=== PATIENT | female | born 1980 | race Caucasian/White ===

== ENCOUNTER 2019-01-14 12:28 | Observation (INO) ==
[2019-01-14] MEDS ORDERED: 0.9 % Sodium Chloride 1,000 ML IVC ONE (12:52)
--- NOTE | 2019-01-14 12:52 | Emergency Department Note ---
Disposition Clinical Impression: Dysuria, Pelvic abscess, SIRS (systemic inflammatory response syndrome) Disposition: Admitted As Inpatient Referrals: Marybeth Kelley CNP [Primary Care Provider] - Forms: ED Satisfaction Letter, Work/School Release Time of Disposition: 16:17 General Adult HPI - General Chief complaint: ED Abdominal Pain Stated complaint: Chilled post surgical pain Time Seen by Provider: 01/14/19 12:49 Source: patient, family Mode of arrival: private vehicle Limitations: no limitations Nursing Notes Reviewed: Yes Vital Signs Reviewed: Yes - History of Present Illness HPI Narrative: Patient is a 38-year-old female with a past medical history including hypertension, type 2 diabetes mellitus [id number], presenting with chief complaint of dysuria and chills. 4 days ago, the patient had a robotic myomectomy done. She had A Ward catheter placed that was removed on postoperative day #1. She was urinating well. She complains of increased difficulty urinating and pain with urination for the end of the stream with some burning with urination that has been progressively worsening the last 2-3 days. She states since last night, she complains of chills but no documented fevers. She has been eating and drinking normally. No nausea or vomiting. She had a normal bowel movement yesterday after self disimpaction. She denies hematuria but states her urine is darker. Denies abnormal vaginal discharge or bleeding. She has occasional lower abdominal pain that worsens when she stands up. She has been wearing her abdominal binder. Incision sites appears to be well. Pain Scale: 5 - Related Data Home Medications Medication Instructions Recorded Confirmed Albuterol Sulfate [Proventil Hfa] 2 puff PO Q4H PRN 10/16/18 01/10/19 Cetirizine HCl [Zyrtec] 10 mg PO QPM 10/16/18 01/10/19 Dextroamphetamine/Amphetamine 20 mg PO BID 10/16/18 01/10/19 [Adderall 20 mg Tablet] Fluticasone Propionate Nasal 2 spray NS BID PRN 10/16/18 01/10/19 [Flonase] Lisinopril [Zestril] 10 mg PO QAM 10/16/18 01/10/19 Metformin HCl 1,000 mg PO BID 10/16/18 01/14/19 Pnv No.122/Iron/Folic Acid 1 tab PO QPM 10/16/18 01/10/19 [ Multi Tablet] clonazePAM [Klonopin] 0.5 mg PO BID PRN 10/16/18 01/10/19 Lysine [l-Lysine] 1,000 mg PO TID PRN 01/10/19 01/10/19 Previous Rx's Medication Instructions Recorded HYDROcodone/Acet 5/325 mg [[place] 1 tab PO Q4HR PRN 7 Days #30 tablet 01/11/19 5-325 mg] Ibuprofen [Motrin] 600 mg PO Q6HR PRN #40 tablet 01/11/19 Allergies Allergy/AdvReac Type Severity Reaction Status Date / Time No Known Allergies Allergy Verified 01/10/19 09:56 All systems ED: reviewed and negative except as stated. Review of Systems: As Per HPI Constitutional: Reports: chills. Denies: fever Cardiovascular: Denies: chest pain, palpitations Respiratory: Denies: cough, dyspnea Gastrointestinal: Reports: abdominal pain. Denies: nausea, vomiting, diarrhea Genitourinary: Reports: dysuria. Denies: hematuria Neurological: Denies: headache, weakness Past Medical History - Past Medical History Attestation: Yes The following information was validated with the patient. Source: patient Medical history: Reports: asthma, diabetes, hypertension, other Surgical history: Reports: other Psychiatric history: Reports: anxiety - Social History Smoking Status: Current some day smoker Smokeless Tobacco Status: No Alcohol use: Reports: occasionally Drug use: Reports: none Physical Exam - General Limitations: no limitations General appearance: alert, in no apparent distress - Head Head exam: atraumatic, normocephalic - Eye Eye exam: Present: normal appearance, EOMI - ENT ENT exam: normal exam, normal oropharynx - Neck Neck exam: Present: normal inspection, trachea midline - Chest Chest inspection: Present: normal inspection, symmetric chest wall rise - Respiratory Respiratory exam: Present: normal lung sounds bilaterally. Absent: respiratory distress, wheezes - Cardiovascular Cardiovascular exam: Present: normal rhythm, tachycardia - Abdominal Exam Abdominal exam: Present: soft, other (Suprapubic abdominal tenderness to palpation without guarding, rebound or distention. Surgery incision sites appear to be healing well, no surrounding erythema or discharge) - Extremities Exam Extremities exam: Present: normal capillary refill. Absent: pedal edema, calf tenderness - Neurological Exam Neurological exam: Present: alert, oriented X3 - Psychiatric Psychiatric exam: Present: normal affect, normal mood - Skin Skin exam: Present: warm, dry. Absent: diaphoresis, pallor Course Vital Signs Temperature 98.0 F 01/14/19 12:29 Pulse Rate 108 01/14/19 12:29 Respiratory Rate 20 01/14/19 12:29 Blood Pressure 157/109 01/14/19 12:29 O2 Sat by Pulse Oximetry 100 01/14/19 12:29 Temperature 98.0 F 01/14/19 12:29 Pulse Rate 104 01/14/19 13:03 Respiratory Rate 16 01/14/19 13:03 Blood Pressure 150/91 01/14/19 13:03 O2 Sat by Pulse Oximetry 96 01/14/19 13:03 Oxygen Delivery Oxygen Delivery Room Air Medical Decision Making - MDM Narrative Medical decision making narrative: Patient is presenting with signs and symptoms of UTI. She did have a Ward catheter during her admission this past week. Will obtain urinalysis. She is mildly tachycardic and was initially tachypneic. We will give her a liter of IV fluid bolus, obtain CBC, BMP, lactate and blood cultures. Do not suspect that the patient has a postoperative complication however as she has a non-peritoneal abdominal examination. She does have mild abdominal tenderness to palpation in the suprapubic region. Will give her Tylenol, she is in no acute distress and no pain while laying down. 13:50 Urinalysis shows no UTI, will obtain CT abd pelvis to evaluate for postoperative complications at this time. 15:35 Discussed with [facility], Dr. Rosen. CT results shows soft tissue gas throughout and concern for possible necrotizing fasciitis versus from the insufflation however it is a large amount. No crepitus was noted on abdominal examination. She has a nonperitoneal abdominal exam and the patient There is also a abscess in the pelvis measuring 10cm. OBGYN paged. 15:45 Discussed with OBGYN, Dr. Miguel who will look at imaging and call back. Vancomycin and zosyn ordered 16:00 Possible IR drainage today or tomorrow, IV abx. If he is unable to do it, IV abx with one dose, send home with one dose. She also states the subcutaneous area was insuflated with air and patient does not have necrotizing fasscitis. 16:[address] Miguel. The abscess is loculated and not able to IR drain at this time, will try with IV antibiotics and admit for observation as she initially met SIRS with tachycardia and tachypnea. She is still tachycardic despite IVFs. - Medical Records Medical records reviewed: Yes I reviewed the patient's medical records. - Lab Data Lab results reviewed: Yes I reviewed the patient's lab results. Result diagrams: 01/14/19 13:34 01/14/19 13:34 Lab Results 01/14/19 01/14/19 01/14/19 Range/Units 13:11 13:34 13:34 WBC 9.7 (4.3-11.1) K/mcL RBC 3.64 L (3.82-4.97) M/mcL Hgb 10.7 L (11.5-15.4) g/dL Hct 32.6 L (35.3-44.9) % MCV 89.6 (83.0-100.0) fL MCH 29.4 (28.0-33.3) pg MCHC 32.8 (31.6-35.5) g/dL RDW 13.1 (11.5-14.5) % Plt Count 236 (140-400) K/mcL MPV 11.5 (9.4-12.4) fL Immature Gran % 0.3 (0-4) % Seg Neutrophils % 85.3 % Lymphocytes % 7.5 % Monocytes % 5.3 % Eosinophils % 1.5 % Basophils % 0.1 % Neutrophils # 8.3 (1.6-8.9) K/mcL Lymphocytes # 0.7 (0.6-4.6) K/mcL Monocytes # 0.5 (0.0-1.3) K/mcL Eosinophils # 0.2 (0.0-0.6) K/mcL Basophils # 0.0 (0.0-0.2) K/mcL Sodium 136 (136-145) mEq/L Potassium 3.6 (3.5-5.1) mEq/L Chloride 101 (98-107) mEq/L Carbon Dioxide 25 (23-29) mEq/L BUN 5 L (6-20) mg/dL Creatinine 0.53 L (0.60-1.20) mg/dL Est GFR ( Amer) > 60 (> 60) Est GFR (Non-Af Amer) > 60 (> 60) BUN/Creatinine Ratio 9 (6-26) Glucose 105 (70-105) mg/dL Calculated Osmolality 280 (280-300) Lactic Acid (0.5-2.2) mmol/L Calcium 8.9 (8.6-10.3) mg/dL Urine Color Yellow (Yellow) Urine Clarity Clear (Clear) Urine pH 7.5 (5.0-8.0) pH Units Ur Specific [place] 1.014 (1.010-1.025) Urine Protein Negative (Neg-Trace) mg/dL Urine Glucose (UA) Normal (Normal) mg/dL Urine Ketones Negative (Negative) mg/dL Urine Blood Negative (Negative) Urine Nitrite Negative (Negative) Urine Bilirubin Negative (Negative) Urine Urobilinogen Normal (Normal) mg/dL Ur Leukocyte Esterase Trace H (Negative) Urine Microscopic RBC 0-3 (0-3) per hpf Urine Microscopic WBC 3-5 H (0-3) per hpf Ur Squamous Epith Cells Many H (None-Few) per lpf Urine Bacteria None Seen (None-Few) per hpf Hyaline Casts None Seen (None-Few) per lpf Ur Culture Indicated? YES A (NO) 01/14/19 Range/Units 13:34 WBC (4.3-11.1) K/mcL RBC (3.82-4.97) M/mcL Hgb (11.5-15.4) g/dL Hct (35.3-44.9) % MCV (83.0-100.0) fL MCH (28.0-33.3) pg MCHC (31.6-35.5) g/dL RDW (11.5-14.5) % Plt Count (140-400) K/mcL MPV (9.4-12.4) fL Immature Gran % (0-4) % Seg Neutrophils % % Lymphocytes % % Monocytes % % Eosinophils % % Basophils % % Neutrophils # (1.6-8.9) K/mcL Lymphocytes # (0.6-4.6) K/mcL Monocytes # (0.0-1.3) K/mcL Eosinophils # (0.0-0.6) K/mcL Basophils # (0.0-0.2) K/mcL Sodium (136-145) mEq/L Potassium (3.5-5.1) mEq/L Chloride (98-107) mEq/L Carbon Dioxide (23-29) mEq/L BUN (6-20) mg/dL Creatinine (0.60-1.20) mg/dL Est GFR ( Amer) (> 60) Est GFR (Non-Af Amer) (> 60) BUN/Creatinine Ratio (6-26) Glucose (70-105) mg/dL Calculated Osmolality (280-300) Lactic Acid 1.2 (0.5-2.2) mmol/L Calcium (8.6-10.3) mg/dL Urine Color (Yellow) Urine Clarity (Clear) Urine pH (5.0-8.0) pH Units Ur Specific [place] (1.010-1.025) Urine Protein (Neg-Trace) mg/dL Urine Glucose (UA) (Normal) mg/dL Urine Ketones (Negative) mg/dL Urine Blood (Negative) Urine Nitrite (Negative) Urine Bilirubin (Negative) Urine Urobilinogen (Normal) mg/dL Ur Leukocyte Esterase (Negative) Urine Microscopic RBC (0-3) per hpf Urine Microscopic WBC (0-3) per hpf Ur Squamous Epith Cells (None-Few) per lpf Urine Bacteria (None-Few) per hpf Hyaline Casts (None-Few) per lpf Ur Culture Indicated? (NO) - Radiology Data Radiology results reviewed: Yes I reviewed the patient's radiology results. Abdomen/Pelvis CT 01/14/19 13:53 IMPRESSION: 1. Large volume soft tissue gas involving the right perineum, groin, anterior abdominal wall and extending to the anterior aspect of the lower right chest. While this may be related insufflation during the surgery, necrotizing infection should be excluded. 2. Multilocular pelvic abscess measuring approximately 11 x 7 x 3 cm. 3. Cholelithiasis. Mild gallbladder wall thickening. 4. Small amount of free intraperitoneal air, consistent with the recent surgery. This report was discussed with Dr. Angeles at 3:38 p.m. on 01/14/2019. D/ / 01/14/2019 15:46:26 Hans Rosen MD / [email or web address] Interpreting Provider: Hans Rosen MD
[2019-01-14 13:20] LABS: Bilirubin,Urine Negative (Negative); Blood,Urine Negative (Negative); Clarity,Urine Clear (Clear); Color,Urine Yellow (Yellow); Glucose,Urine (UA) Normal (Normal); Ketones,Urine Negative (Negative); Leukocyte Esterase,Urine Trace (Negative); Nitrite,Urine Negative (Negative); PH,Urine 7.5 pH Units (5.0-8.0); Protein,Urine Negative (Neg-Trace); Specific Gravity,Urine 1.014 (1.010-1.025); Urobilinogen,Urine Normal (Normal)
[2019-01-14 13:22] LABS: Bacteria,Urine None Seen per hpf (None-Few); Hyaline Casts,Urine None Seen per lpf (None-Few); RBC,Urine 0-3 per hpf (0-3); Squamous Epithelial Cell,Urine Many per lpf (None-Few)
[2019-01-14 13:44] LABS: Basophils % 0.1 %; Eosinophils # 0.2 K/mcL (0.0-0.6); Eosinophils % 1.5 %; Hematocrit 32.6 % (35.3-44.9); Hemoglobin 10.7 g/dL (11.5-15.4); Immature Granulocytes % 0.3 % (0-4); Lymphocytes # 0.7 K/mcL (0.6-4.6); Lymphocytes % 7.5 %; Mean Corpuscular HGB Conc 32.8 g/dL (31.6-35.5); Mean Corpuscular Hemoglobin 29.4 pg (28.0-33.3); Mean Corpuscular Volume 89.6 fL (83.0-100.0); Mean Platelet Volume 11.5 fL (9.4-12.4); Monocytes # 0.5 K/mcL (0.0-1.3); Monocytes % 5.3 %; Neutrophils # 8.3 K/mcL (1.6-8.9); Platelet Count 236 K/mcL (140-400); Red Blood Count 3.64 M/mcL (3.82-4.97); Red Cell Distribution Width 13.1 % (11.5-14.5); Segmented Neutrophils % 85.3 %; White Blood Count 9.7 K/mcL (4.3-11.1)
[2019-01-14] MEDS ORDERED: Isovue-370 500 ML BOTTLE IVP ONE (13:53)
[2019-01-14 14:03] LABS: BUN/Creatinine Ratio 9 (6-26); Blood Urea Nitrogen 5 mg/dL (6-20); Calcium 8.9 mg/dL (8.6-10.3); Carbon Dioxide 25 mEq/L (23-29); Chloride 101 mEq/L (98-107); Glucose 105 mg/dL (70-105); Osmolality,Calculated 280 (280-300); Potassium 3.6 mEq/L (3.5-5.1); Sodium 136 mEq/L (136-145); eGFR For African Americans > 60 (> 60); eGFR For Non-African Americans > 60 (> 60)
[2019-01-14] MEDS ORDERED: Piperacillin/Tazobactam 3.375 GM in 0.9 % Sodium Chloride Mini Bag 100 ML IVPB ONE ×2 (15:46→18:29)
--- NOTE | 2019-01-14 17:23 | Emergency Department Note ---
Disposition Clinical Impression: Dysuria, Pelvic abscess, SIRS (systemic inflammatory response syndrome) Disposition: Admitted As Inpatient Referrals: Marybeth Kelley CNP [Primary Care Provider] - Forms: ED Satisfaction Letter, Work/School Release Time of Disposition: 16:17 General Adult HPI - General Chief complaint: ED Abdominal Pain Stated complaint: Chilled post surgical pain Time Seen by Provider: 01/14/19 12:49 Source: patient, family Mode of arrival: private vehicle Limitations: no limitations - History of Present Illness Pain Scale: 6 - Related Data Home Medications Medication Instructions Recorded Confirmed Albuterol Sulfate [Proventil Hfa] 2 puff PO Q4H PRN 10/16/18 01/10/19 Cetirizine HCl [Zyrtec] 10 mg PO QPM 10/16/18 01/10/19 Dextroamphetamine/Amphetamine 20 mg PO BID 10/16/18 01/10/19 [Adderall 20 mg Tablet] Fluticasone Propionate Nasal 2 spray NS BID PRN 10/16/18 01/10/19 [Flonase] Lisinopril [Zestril] 10 mg PO QAM 10/16/18 01/10/19 Metformin HCl 1,000 mg PO BID 10/16/18 01/14/19 Pnv No.122/Iron/Folic Acid 1 tab PO QPM 10/16/18 01/10/19 [ Multi Tablet] clonazePAM [Klonopin] 0.5 mg PO BID PRN 10/16/18 01/10/19 Lysine [l-Lysine] 1,000 mg PO TID PRN 01/10/19 01/10/19 Previous Rx's Medication Instructions Recorded HYDROcodone/Acet 5/325 mg [[place] 1 tab PO Q4HR PRN 7 Days #30 tablet 01/11/19 5-325 mg] Ibuprofen [Motrin] 600 mg PO Q6HR PRN #40 tablet 01/11/19 Allergies Allergy/AdvReac Type Severity Reaction Status Date / Time No Known Allergies Allergy Verified 01/10/19 09:56 Constitutional: Reports: chills. Denies: fever Cardiovascular: Denies: chest pain, palpitations Respiratory: Denies: cough, dyspnea Gastrointestinal: Reports: abdominal pain. Denies: nausea, vomiting, diarrhea Genitourinary: Reports: dysuria. Denies: hematuria Neurological: Denies: headache, weakness Past Medical History - Past Medical History Medical history: Reports: asthma, diabetes, hypertension, other Surgical history: Reports: other Psychiatric history: Reports: anxiety - Social History Smoking Status: Current some day smoker Smokeless Tobacco Status: No Alcohol use: Reports: occasionally Drug use: Reports: none Physical Exam - General Limitations: no limitations General appearance: alert, in no apparent distress Course Vital Signs Temperature 98.0 F 01/14/19 12:29 Pulse Rate 108 01/14/19 12:29 Respiratory Rate 20 01/14/19 12:29 Blood Pressure 157/109 01/14/19 12:29 O2 Sat by Pulse Oximetry 100 01/14/19 12:29 Temperature 98.0 F 01/14/19 12:29 Pulse Rate 89 01/14/19 16:17 Respiratory Rate 16 01/14/19 16:17 Blood Pressure 143/86 01/14/19 16:17 O2 Sat by Pulse Oximetry 98 01/14/19 16:17 Oxygen Delivery Oxygen Delivery Room Air Medical Decision Making - Lab Data Result diagrams: 01/14/19 13:34 01/14/19 13:34 Lab Results 01/14/19 01/14/19 01/14/19 Range/Units 13:11 13:34 13:34 WBC 9.7 (4.3-11.1) K/mcL RBC 3.64 L (3.82-4.97) M/mcL Hgb 10.7 L (11.5-15.4) g/dL Hct 32.6 L (35.3-44.9) % MCV 89.6 (83.0-100.0) fL MCH 29.4 (28.0-33.3) pg MCHC 32.8 (31.6-35.5) g/dL RDW 13.1 (11.5-14.5) % Plt Count 236 (140-400) K/mcL MPV 11.5 (9.4-12.4) fL Immature Gran % 0.3 (0-4) % Seg Neutrophils % 85.3 % Lymphocytes % 7.5 % Monocytes % 5.3 % Eosinophils % 1.5 % Basophils % 0.1 % Neutrophils # 8.3 (1.6-8.9) K/mcL Lymphocytes # 0.7 (0.6-4.6) K/mcL Monocytes # 0.5 (0.0-1.3) K/mcL Eosinophils # 0.2 (0.0-0.6) K/mcL Basophils # 0.0 (0.0-0.2) K/mcL Sodium 136 (136-145) mEq/L Potassium 3.6 (3.5-5.1) mEq/L Chloride 101 (98-107) mEq/L Carbon Dioxide 25 (23-29) mEq/L BUN 5 L (6-20) mg/dL Creatinine 0.53 L (0.60-1.20) mg/dL Est GFR ( Amer) > 60 (> 60) Est GFR (Non-Af Amer) > 60 (> 60) BUN/Creatinine Ratio 9 (6-26) Glucose 105 (70-105) mg/dL Calculated Osmolality 280 (280-300) Lactic Acid (0.5-2.2) mmol/L Calcium 8.9 (8.6-10.3) mg/dL Urine Color Yellow (Yellow) Urine Clarity Clear (Clear) Urine pH 7.5 (5.0-8.0) pH Units Ur Specific [employer] [place] 1.014 (1.010-1.025) Urine Protein Negative (Neg-Trace) mg/dL Urine Glucose (UA) Normal (Normal) mg/dL Urine Ketones Negative (Negative) mg/dL Urine Blood Negative (Negative) Urine Nitrite Negative (Negative) Urine Bilirubin Negative (Negative) Urine Urobilinogen Normal (Normal) mg/dL Ur Leukocyte Esterase Trace H (Negative) Urine Microscopic RBC 0-3 (0-3) per hpf Urine Microscopic WBC 3-5 H (0-3) per hpf Ur Squamous Epith Cells Many H (None-Few) per lpf Urine Bacteria None Seen (None-Few) per hpf Hyaline Casts None Seen (None-Few) per lpf Ur Culture Indicated? YES A (NO) 01/14/19 Range/Units 13:34 WBC (4.3-11.1) K/mcL RBC (3.82-4.97) M/mcL Hgb (11.5-15.4) g/dL Hct (35.3-44.9) % MCV (83.0-100.0) fL MCH (28.0-33.3) pg MCHC (31.6-35.5) g/dL RDW (11.5-14.5) % Plt Count (140-400) K/mcL MPV (9.4-12.4) fL Immature Gran % (0-4) % Seg Neutrophils % % Lymphocytes % % Monocytes % % Eosinophils % % Basophils % % Neutrophils # (1.6-8.9) K/mcL Lymphocytes # (0.6-4.6) K/mcL Monocytes # (0.0-1.3) K/mcL Eosinophils # (0.0-0.6) K/mcL Basophils # (0.0-0.2) K/mcL Sodium (136-145) mEq/L Potassium (3.5-5.1) mEq/L Chloride (98-107) mEq/L Carbon Dioxide (23-29) mEq/L BUN (6-20) mg/dL Creatinine (0.60-1.20) mg/dL Est GFR ( Amer) (> 60) Est GFR (Non-Af Amer) (> 60) BUN/Creatinine Ratio (6-26) Glucose (70-105) mg/dL Calculated Osmolality (280-300) Lactic Acid 1.2 (0.5-2.2) mmol/L Calcium (8.6-10.3) mg/dL Urine Color (Yellow) Urine Clarity (Clear) Urine pH (5.0-8.0) pH Units Ur Specific [employer] [place] (1.010-1.025) Urine Protein (Neg-Trace) mg/dL Urine Glucose (UA) (Normal) mg/dL Urine Ketones (Negative) mg/dL Urine Blood (Negative) Urine Nitrite (Negative) Urine Bilirubin (Negative) Urine Urobilinogen (Normal) mg/dL Ur Leukocyte Esterase (Negative) Urine Microscopic RBC (0-3) per hpf Urine Microscopic WBC (0-3) per hpf Ur Squamous Epith Cells (None-Few) per lpf Urine Bacteria (None-Few) per hpf Hyaline Casts (None-Few) per lpf Ur Culture Indicated? (NO) Attestation Statement - Attestation Attestation: I examined this patient and my medical decision-making was reviewed with the Resident Physician. I agree with the documented findings, disposition and tr eatment plan as described except to the extent set forth below. Postoperative pelvic abscess. Air in the subcutaneous tissue was thought to be more extensive than would be typical from insufflation from her surgery, however, clinically there is no suggestion of necrotizing fasciitis. While she is mildly tachycardic, her pain is minimal, certainly not out of proportion to her exam. She has no fever. She appears well. There was consideration by the [facility] team for discharge and close outpatient follow up in anticipation of eventual CT-guided drainage, but considering that she met SIRS criteria on presentation, she was treated as sepsis and admitted on IV antibiotics.
--- NOTE | 2019-01-14 18:10 | OB/GYN History & Physical ---
Date of Encounter: 01/14/19 Time of Encounter: 17:59 Assessment and Plan (1) Pelvic abscess Current visit: Yes Status: Acute Admit for IV antibiotics x 48 hrs. Pt currently stable. Possible repeat CTAP prior to DC home vs later this week. We discussed that a CT would be most warranted if her clinical picture was not improving/worsening. We discussed that if the abscess grew larger she would be a possible candidate for IR drainage. Anticipate DC home s/p 48 hrs on PO abx x 2 weeks. Diabetic Diet. Pain management PRN. (2) Hypertension Current visit: Yes Status: Acute Continue 10 mg of lisinopril daily Qualifiers: Hypertension type: essential hypertension Qualified Code(s): I10 - Essential (primary) hypertension (3) Diabetes mellitus Current visit: No Status: Chronic Continue 1000 mg of metformin twice a day. 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 Ewing is a 38 year old G0 with past medical history of hypertension, [id number] type 2 diabetes, asthma, ADHD, endometriosis, pelvic adhesions with occluded fallopian tubes, and uterine fibroids presenting with a chief complaint of dysuria, fevers up to 100.8 taken orally yesterday, chills this morning, lower abdominal and pelvic pain/pressure. On December 10, the patient underwent a robotic myomectomy, and had 2 uterine fibroids removed, totaling 30g. The procedure was complicated with acute blood loss anemia (EBL 800c) so s he stayed an additional day in the hospital. She was discharged on December 11, 1 day after surgery, Ward DC'd that morning. Since that time she has had increased pain with urination particularly at the end of her stream, and feelings that she is not emptying her bladder completely. This has progress ively gotten worse over the past 2-3 days. Additionally she states, that she has been constipated since Tuesday, December 08, 2 days prior to her procedure, and was not passing gas until yesterday. This morning she manually disimpacted herself, and withdrew a large amount of feces that she described as hard and claylike she states that she felt like much of her pain was related to constipation, so she has been taking 2-3 Colace a day and using Metamucil\Benefiber. After the manual disimpaction, she had a small normal bowel movement. She states that her stool was covered in bright red blood, but this is not unusual for her because she does have external hemorrhoids. She has never been diagnosed with IBS. She will often not eat & take her Metformin in the evening in order to experience loose stools. Patient denies vaginal discharge, vaginal bleeding, hematuria, drainage from her incision sites, unilateral leg swelling, nausea, vomiting, chest pain, shortness of breath. She denies any decreases in oral intake, she actually believes that she is drinking much more water than usual. In the emergency department, the patient was worked up initially for a UTI, which was negative. A CT of the abdomen and pelvis was ordered, which showed a large multiloculated abscess in the pelvis (11 x 7x 3 m), so the [facility]ED [facility]CCUPATIONAL THER[facility]Y ASSISTANT service was consulted. She will be admitted to the hospital for IV antibiotics under [facility]. The patient was seen and examined separately. Appropriate changes made to above history of present illness and in agreement. Salena Lind, DO Past Med Surg Social Fam HX - Past Medical History Attestation: Yes The following information was validated with the patient. Source: patient Medical history: asthma, diabetes, hypertension, other Additional medical history: pelvic pain. attention deficit disorder. irregular periods/menstrual cycles. Anxiety. Endometrosis. Menorrhagia. Large Uterine Fibroid Psychiatric history: anxiety - Past Surgical History Surgical History: other Additional surgical history: wisdom teeth extracted x4 (22yo). Lysis of pelvic adhesions (October 2018). 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 LMP 12/25/2018. She denies any history of abnormal Pap smears. She has not obtained her Gardasil HPV vaccine series. She was diagnosed with endometriosis in October 2018 during a laparoscopy where she also had lysis of pelvic adhesions performed. Medications and Allergies Albuterol Sulfate [Proventil Hfa] 2 puff PO Q4H PRN 10/16/18 [History] Cetirizine HCl [Zyrtec] 10 mg PO QPM 10/16/18 [History] Dextroamphetamine/Amphetamine [Adderall 20 mg Tablet] 20 mg PO BID 10/16/18 [History] Fluticasone Propionate Nasal [Flonase] 2 spray NS BID PRN 10/16/18 [History] Lisinopril [Zestril] 10 mg PO QAM 10/16/18 [History] Metformin HCl 1,000 mg PO BID 10/16/18 [History] Pnv No.122/Iron/Folic Acid [ Multi Tablet] 1 tab PO QPM 10/16/18 [History] clonazePAM [Klonopin] 0.5 mg PO BID PRN 10/16/18 [History] Lysine [l-Lysine] 1,000 mg PO TID PRN 01/10/19 [History] HYDROcodone/Acet 5/325 mg [Britton 5-325 mg] 1 tab PO Q4HR PRN 7 Days #30 tablet 01/11/19 [Rx] Ibuprofen [Motrin] 600 mg PO Q6HR PRN #40 tablet 01/11/19 [Rx] Allergy/AdvReac Type Severity Reaction Status Date / Time No Known Allergies Allergy Verified 01/10/19 09:56 Review of System OB All systems PM: reviewed and no additional remarkable complaints except as state d - Constitutional Constitutional ROS IM: chills, fever(s) - Gastrointestinal Gastrointestinal: abdominal pain, bloating, change in bowel habits, change in stool character, constipation, cramping, no excessive flatus, no nausea, no vomiting - Genitourinary Genitourinary: difficulty voiding, dysuria, pelvic pain, urinary frequency, no abnormal vaginal bleeding, no flank pain, no hematuria, no vaginal discharge, no vaginal dryness, no vaginal odor Exam - Vital Signs Vital signs: Initial Vital Signs Temp Pulse Resp BP Pulse Ox 98.0 F 108 20 157/109 100 01/14/19 12:29 01/14/19 12:01/14/19 12:01/14/19 12:01/14/19 12:29 - Constitutional Constitutional: well developed, well nourished, no acute distress, obese - HEENT HEENT: Normocephaly, Mucus Membranes Moist - Neck Neck exam: normal inspection - Lungs Respiratory exam: CTAB - Cardiovascular Cardiovascular exam: RRR, +S1, +S2 - Abdomen Abdomen: Present: bowel sounds normal, non tender. Absent: guarding noted Abdomen detail: right lower quadrant: tenderness (Minimal suprapubic pain to palpation, no rebound, no involuntary guarding no voluntary guarding. No signs of fluid wave. Protuberant. 4 laparoscopic surgical incision sites are clean/dry/intact), left lower quadrant: tenderness - Extremities Extremities exam: normal inspection, radial pulses palpable and symmetrical Results Result Diagrams: 01/14/19 13:34 01/14/19 13:34 Abnormal lab results RBC 3.64 M/mcL (3.82-4.97) L 01/14/19 13:34 Hgb 10.7 g/dL (11.5-15.4) L 01/14/19 13:34 Hct 32.6 % (35.3-44.9) L 01/14/19 13:34 BUN 5 mg/dL (6-20) L 01/14/19 13:34 Creatinine 0.53 mg/dL (0.60-1.20) L 01/14/19 13:34 Ur Leukocyte Esterase Trace (Negative) H 01/14/19 13:11 Urine Microscopic WBC 3-5 per hpf (0-3) H 01/14/19 13:11 Ur Squamous Epith Cells Many per lpf (None-Few) H 01/14/19 13:11 Ur Culture Indicated? YES (NO) A 01/14/19 13:[address] All other labs normal. CT Non Contrast ABD/Pelvis IMPRESSION: 1. Large volume soft tissue gas involving the right perineum, groin, anterior abdominal wall and extending to the anterior aspect of the lower right chest. While this may be related insufflation during the surgery, necrotizing infection should be excluded. 2. Multilocular pelvic abscess measuring approximately 11 x 7 x 3 cm. 3. Cholelithiasis. Mild gallbladder wall thickening. 4. Small amount of free intraperitoneal air, consistent with the recent surgery. CT scan - abdomen: report reviewed - Attending Attestation The patient was seen and examined separately. Reviewed her history of present illness and history with her. Appropriate changes made to this note. I am put the assessment and plan. Salena Lind D.O.
[2019-01-14] MEDS: Piperacillin/Tazobactam 3.375 GM in 0.9 % Sodium Chloride Mini Bag 100 ML IVPB SCH (22:41)
[2019-01-14] MEDS: *HR* Metformin 500 MG TABLET PO SCH (22:42)
[2019-01-15] MEDS: Piperacillin/Tazobactam 3.375 GM in 0.9 % Sodium Chloride Mini Bag 100 ML IVPB SCH (06:27)
[2019-01-15] MEDS ORDERED: Ibuprofen 600 MG TABLET PO PRN (06:56)
[2019-01-15 08:44] LABS: Hematocrit 30.5 % (35.3-44.9); Hemoglobin 9.9 g/dL (11.5-15.4); Mean Corpuscular HGB Conc 32.5 g/dL (31.6-35.5); Mean Corpuscular Hemoglobin 29.2 pg (28.0-33.3); Mean Platelet Volume 11.2 fL (9.4-12.4); Platelet Count 238 K/mcL (140-400); Red Blood Count 3.39 M/mcL (3.82-4.97); White Blood Count 8.4 K/mcL (4.3-11.1)
[2019-01-15] MEDS ORDERED: Doxycycline 100 MG CAPSULE PO ONE (09:09)
[2019-01-15] MEDS: *HR* Metformin 500 MG TABLET PO SCH (09:10)
[2019-01-15] MEDS ORDERED: metroNIDAZOLE 500 MG TABLET PO ONE (09:13)
--- NOTE | 2019-01-15 09:16 | Discharge Summary ---
Date of Encounter: 01/15/19 Time of Encounter: 08:30 - Discharge Diagnosis (1) S/P myomectomy Priority: Primary Status: Acute Comments: 38yo female s/p robotic myomectomy, readmitted to [facility] with concern postoperative inta-abdominal abscess after presenting to the ED with fever and chills. CT performed showing a loculated multiseptated lesion, that may be clotted blood, near to the site of likely surgical removal of fibroid. Patient was started on IV ABx and kept under observation overnight. Patient was made aware today, on HD#2 that it is normal to have low grade fevers s/p myomectomy 2/2 prostaglandin release at time of fiboid removal. The incidence lesion appreciated within the abdomen is unlikely to be bacteria as the patient has otherwise been asymptomatic, tolerating a regular diet, passing flatus and bowel movement(S) with pain controlled by po ibuprofen/tylenol. Patient is also ambulatory with minimal abdominal tenderness. Robotic sites non-erythematous or infectiuos appearing, closed by dermabond. Patient was transitioned to doxy/flagyl this AM and discharged to home once given a dose. Will continue BID regimen for both medication(S) for 14 days and will follow up with Dr. Knapp this week should she have any further question(S) or concerns. DC to home today with SEPSIS precaution(s). MD PAUL - Discharge Medications Prescriptions: New Doxycycline 100 mg PO BID 14 Days #28 capsule metroNIDAZOLE [Flagyl] 500 mg PO BID 14 Days #28 tablet No Action Metformin HCl 1,000 mg PO BID Lisinopril [Zestril] 10 mg PO QAM Fluticasone Propionate Nasal [Flonase] 2 spray NS BID PRN PRN Reason: Allergy Symptoms clonazePAM [Klonopin] 0.5 mg PO BID PRN PRN Reason: Anxiety Albuterol Sulfate [Proventil Hfa] 2 puff PO Q4H PRN PRN Reason: Shortness Of Breath Dextroamphetamine/Amphetamine [Adderall 20 mg Tablet] 20 mg PO BID Cetirizine HCl [Zyrtec] 10 mg PO QPM Pnv No.122/Iron/Folic Acid [ Multi Tablet] 1 tab PO QPM Lysine [l-Lysine] 1,000 mg PO TID PRN PRN Reason: FEVER BLISTERS Ibuprofen [Motrin] 600 mg PO Q6HR PRN #40 tablet PRN Reason: post op pain HYDROcodone/Acet 5/325 mg [Goodyear 5-325 mg] 1 tab PO Q4HR PRN 7 Days #30 tablet PRN Reason: Moderate Pain (4-6) Home Medications: Albuterol Sulfate [Proventil Hfa] 2 puff PO Q4H PRN 10/16/18 [History] Cetirizine HCl [Zyrtec] 10 mg PO QPM 10/16/18 [History] Dextroamphetamine/Amphetamine [Adderall 20 mg Tablet] 20 mg PO BID 10/16/18 [History] Fluticasone Propionate Nasal [Flonase] 2 spray NS BID PRN 10/16/18 [History] Lisinopril [Zestril] 10 mg PO QAM 10/16/18 [History] Metformin HCl 1,000 mg PO BID 10/16/18 [History] Pnv No.122/Iron/Folic Acid [ Multi Tablet] 1 tab PO QPM 10/16/18 [History] clonazePAM [Klonopin] 0.5 mg PO BID PRN 10/16/18 [History] Lysine [l-Lysine] 1,000 mg PO TID PRN 01/10/19 [History] HYDROcodone/Acet 5/325 mg [[place]year 5-325 mg] 1 tab PO Q4HR PRN 7 Days #30 tablet 01/11/19 [Rx] Ibuprofen [Motrin] 600 mg PO Q6HR PRN #40 tablet 01/11/19 [Rx] Doxycycline 100 mg PO BID 14 Days #28 capsule 01/15/19 [Rx] metroNIDAZOLE [Flagyl] 500 mg PO BID 14 Days #28 tablet 01/15/19 [Rx] Allergies/Adverse Reactions: Allergy/AdvReac Type Severity Reaction Status Date / Time No Known Allergies Allergy Verified 01/10/19 09:56 Data Procedures and tests throughout hospitalization: Laboratory Tests 01/14/19 01/14/19 01/14/19 13:11 13:34 13:34 WBC 9.7 RBC 3.64 L Hgb 10.7 L Hct 32.6 L MCV 89.6 MCH 29.4 MCHC 32.8 RDW 13.1 Plt Count 236 MPV 11.5 Immature Gran % 0.3 Seg Neutrophils % 85.3 Lymphocytes % 7.5 Monocytes % 5.3 Eosinophils % 1.5 Basophils % 0.1 Neutrophils # 8.3 Lymphocytes # 0.7 Monocytes # 0.5 Eosinophils # 0.2 Basophils # 0.0 Sodium 136 Potassium 3.6 Chloride 101 Carbon Dioxide 25 BUN 5 L Creatinine 0.53 L Est GFR ( Amer) > 60 Est GFR (Non-Af Amer) > 60 BUN/Creatinine Ratio 9 Glucose 105 Calculated Osmolality 280 Lactic Acid Calcium 8.9 Urine Color Yellow Urine Clarity Clear Urine pH 7.5 Ur Specific Ronald 1.014 Urine Protein Negative Urine Glucose (UA) Normal Urine Ketones Negative Urine Blood Negative Urine Nitrite Negative Urine Bilirubin Negative Urine Urobilinogen Normal Ur Leukocyte Esterase Trace H Urine Microscopic RBC 0-3 Urine Microscopic WBC 3-5 H Ur Squamous Epith Cells Many H Urine Bacteria None Seen Hyaline Casts None Seen Ur Culture Indicated? YES A 01/14/19 01/15/19 13:34 08:06 WBC 8.4 RBC 3.39 L Hgb 9.9 L Hct 30.5 L MCV 90.0 MCH 29.2 MCHC 32.5 RDW 13.0 Plt Count 238 MPV 11.2 Immature Gran % Seg Neutrophils % Lymphocytes % Monocytes % Eosinophils % Basophils % Neutrophils # Lymphocytes # Monocytes # Eosinophils # Basophils # Sodium Potassium Chloride Carbon Dioxide BUN Creatinine Est GFR ( Amer) Est GFR (Non-Af Amer) BUN/Creatinine Ratio Glucose Calculated Osmolality Lactic Acid 1.2 Calcium Urine Color Urine Clarity Urine pH Ur Specific Ronald Urine Protein Urine Glucose (UA) Urine Ketones Urine Blood Urine Nitrite Urine Bilirubin Urine Urobilinogen Ur Leukocyte Esterase Urine Microscopic RBC Urine Microscopic WBC Ur Squamous Epith Cells Urine Bacteria Hyaline Casts Ur Culture Indicated? Labs on day of discharge: Labs from last 24 hours 01/15/19 01/14/19 01/14/19 08:06 13:34 13:34 WBC 8.4 RBC 3.39 L Hgb 9.9 L Hct 30.5 L MCV 90.0 MCH 29.2 MCHC 32.5 RDW 13.0 Plt Count 238 MPV 11.2 Immature Gran % Seg Neutrophils % Lymphocytes % Monocytes % Eosinophils % Basophils % Neutrophils # Lymphocytes # Monocytes # Eosinophils # Basophils # Sodium 136 Potassium 3.6 Chloride 101 Carbon Dioxide 25 BUN 5 L Creatinine 0.53 L Est GFR ( Amer) > 60 Est GFR (Non-Af Amer) > 60 BUN/Creatinine Ratio 9 Glucose 105 Calculated Osmolality 280 Lactic Acid 1.2 Calcium 8.9 Urine Color Urine Clarity Urine pH Ur Specific Ronald Urine Protein Urine Glucose (UA) Urine Ketones Urine Blood Urine Nitrite Urine Bilirubin Urine Urobilinogen Ur Leukocyte Esterase Urine Microscopic RBC Urine Microscopic WBC Ur Squamous Epith Cells Urine Bacteria Hyaline Casts Ur Culture Indicated? 01/14/19 01/14/19 13:34 13:11 WBC 9.7 RBC 3.64 L Hgb 10.7 L Hct 32.6 L MCV 89.6 MCH 29.4 MCHC 32.8 RDW 13.1 Plt Count 236 MPV 11.5 Immature Gran % 0.3 Seg Neutrophils % 85.3 Lymphocytes % 7.5 Monocytes % 5.3 Eosinophils % 1.5 Basophils % 0.1 Neutrophils # 8.3 Lymphocytes # 0.7 Monocytes # 0.5 Eosinophils # 0.2 Basophils # 0.0 Sodium Potassium Chloride Carbon Dioxide BUN Creatinine Est GFR ( Amer) Est GFR (Non-Af Amer) BUN/Creatinine Ratio Glucose Calculated Osmolality Lactic Acid Calcium Urine Color Yellow Urine Clarity Clear Urine pH 7.5 Ur Specific Ronald 1.014 Urine Protein Negative Urine Glucose (UA) Normal Urine Ketones Negative Urine Blood Negative Urine Nitrite Negative Urine Bilirubin Negative Urine Urobilinogen Normal Ur Leukocyte Esterase Trace H Urine Microscopic RBC 0-3 Urine Microscopic WBC 3-5 H Ur Squamous Epith Cells Many H Urine Bacteria None Seen Hyaline Casts None Seen Ur Culture Indicated? YES A Preliminary micro results at discharge 01/14/19 13:11 Urine Culture - Preliminary Urine,Clean Catch Culture is incubating. 01/14/19 13:47 Blood Culture - Preliminary Peripheral Venipuncture Culture is incubating and being continuously monitored for growth. Final report to follow. 01/14/19 13:34 Blood Culture - Preliminary Peripheral Venipuncture Culture is incubating and being continuously monitored for growth. Final report to follow. - Impressions ITS Impressions Abdomen/Pelvis CT 01/14/19 13:53 IMPRESSION: 1. Large volume soft tissue gas involving the right perineum, groin, anterior abdominal wall and extending to the anterior aspect of the lower right chest. While this may be related insufflation during the surgery, necrotizing infection should be excluded. 2. Multilocular pelvic abscess measuring approximately 11 x 7 x 3 cm. 3. Cholelithiasis. Mild gallbladder wall thickening. 4. Small amount of free intraperitoneal air, consistent with the recent surgery. This report was discussed with Dr. Angeles at 3:38 p.m. on 01/14/2019. D/ / 01/14/2019 15:46:26 Hans Rosen MD / paulie Interpreting Provider: Hans Rosen MD Date of admission: 01/14/19 19:25 Primary care physician: Marybeth Kelley CNP Discharging clinician: Maite Hooker Anticipated date of discharge: 01/15/19 - Patient Status Disposition: Home, Self-Care Condition: Good - Discharge Instructions Instructions: Metronidazole (By mouth), Doxylamine/Pyridoxine (By mouth) Follow Up With: Marybeth Kelley CNP [Primary Care Provider] - Hospital Course [facility] [employer] Time Attestation: Total time spent providing and/or coordinating discharge services: Exam - Constitutional Vitals: Temp Pulse Resp BP Pulse Ox 99.1 F 97 14 129/79 97 01/15/19 06:30 01/15/19 06:30 01/15/19 06:30 01/15/19 06:30 01/15/19 06:30 General appearance IM: A&O X 3 - Respiratory Respiratory exam: Present: CTAB - Cardiovascular Cardiovascular exam IM: Present: RRR - GI/Abdominal GI/Abdominal exam IM: normal bowel sounds Incision: normal, dry, intact - External exam: normal external exam Uterine Tone: Firm - Extremities Exam Extremities exam IM: Present: normal capillary refill - Neurological Exam Neurological exam: CN II-XII intact - VTE Reasons for not Prescribing Prophylaxis: Treatment not Indicated - Low risk for VTE
[2019-01-15 09:23] VITALS: BP 126/85
== END 2019-01-15 10:37 | disposition home or self-care (01) ==
LOC: 1NENUPED 12:28 → EMEROOARM 12:28 → 1NENUPED 20:00
PROVIDERS: ADMIT Obstetrics & Gynecology; ATTEND Obstetrics & Gynecology